=== PATIENT | female | born 1980 | race Hispanic/Latino ===

== ENCOUNTER 2021-11-28 15:59 | Inpatient (IN) | payer BC, OTHER ==
[~2021-11-28] VITALS: Ht 157.5 cm; Wt 81.6 kg
[~2021-11-28 15:59] MED LIST: DEXAMETHASONE SOD PHOS INJ 4 MG/ML SDV ONE; GLYCOPYRROLATE INJ 0.2 MG/ML VIAL ONE; KETOROLAC TROMETHAMINE 30 MG/ML VIAL ONE; NEOSTIGMINE 1 MG/ML 10ML VIAL ONE; ONDANSETRON HCL INJ 2MG/ML 2ML 2 MG/ML VIAL ONE; POVIDONE IODINE 0.05% 0.05 % ML PO ONE; PROPOFOL IV EMULSION 10 MG/ML 20 ML VIAL ONE
[2021-11-28] MEDS ORDERED: ONDANSETRON HCL INJ 2MG/ML 2ML 2 MG/ML VIAL IV STA (16:06)
[2021-11-28] MEDS ORDERED: ACETAMINOPHEN 1000 MG/100 ML IV STA (16:06)
[2021-11-28] MEDS ORDERED: CEFTRIAXONE 1 GM VIAL IM ONE (16:15)
[2021-11-28 16:21] LABS: BASOPHILS % 0.2 % (0.0-1.0); EOSINOPHILS % 0.4 % (0.0-6.0); HEMOGLOBIN 12.4 g/dL (12.0-16.0); LYMPHOCYTES # (AUTO) 0.5 (1.0-3.2); MEAN CORPUSCULAR HEMOGLOBIN 28.3 pg (28-32); MEAN CORPUSCULAR HGB CONC 31.8 g/dL (31-35); MONOCYTES # (AUTO) 0.2 (0.2-0.8); MONOCYTES % 4.3 % (4.4-11.3); NEUTROPHILS # (AUTO) 4.5 (2.1-6.9); NEUTROPHILS % 84.5 % (38.7-80.0); PLATELET COUNT 314 x10e3/uL (140-360); RED BLOOD COUNT 4.38 x10e6/uL (3.6-5.1); RED CELL DISTRIBUTION WIDTH 12.1 % (11.7-14.4)
[2021-11-28] MEDS ORDERED: SODIUM CHLORIDE 0.9% 1000ML 2,000 ML ONE (16:22)
[2021-11-28] MEDS ORDERED: SODIUM CHLORIDE 0.9% 1000ML 1,000 ML IV ONE ×2 (16:30)
[2021-11-28] MEDS ORDERED: CEFTRIAXONE 1 GM in SODIUM CHLORIDE 0.9% 50ML 50 ML IV ONE (16:30)
[2021-11-28 16:33] LABS: CLARITY,URINE HAZY (CLEAR); COLOR,URINE YELLOW (YELLOW); KETONES,URINE 1+ (NEGATIVE); LEUKOCYTE ESTERASE ,URINE NEGATIVE (NEGATIVE); NITRITE,URINE NEGATIVE (NEGATIVE); PROTEIN,URINE DIPSTICK >=300 (NEGATIVE); URINE UROBILINOGEN 4 mg/dL (0.2 - 1)
[2021-11-28 16:36] LABS: RBC,URINE 21-50 /HPF (0-5)
[2021-11-28 16:37] LABS: BACTERIA,URINE MODERATE /HPF; EPITHELIAL CELLS,URINE FEW /LPF
[2021-11-28 16:39] LABS: ALBUMIN 3.2 g/dL (3.5-5.0); ALBUMIN/GLOBULIN RATIO 0.6 (0.8-2.0); ANION GAP 16.9 mmol/L (8-16); CALCIUM 9.2 mg/dL (8.4-10.2); CREATININE, SERUM 0.73 mg/dL (0.57-1.11); POTASSIUM 3.9 mmol/L (3.5-5.1)
[2021-11-28 16:43] LABS: LIPASE 25 U/L (8-78)
[2021-11-28 16:46] LABS: CREATINE KINASE MB 0.2 ng/mL (0-5.0)
[2021-11-28] MEDS ORDERED: FENTANYL CITRATE/PF 100MCG/2 ML INJ IV ONE (17:30)
[2021-11-28] MEDS ORDERED: LACTATED RINGER'S 1,000 ML INJ ONE (17:45)
[2021-11-28] MEDS ORDERED: Vancomycin IV 1 GM in SODIUM CHLORIDE 0.9% 250ML 250 ML IV ONE (18:00)
[2021-11-28] MEDS: PIPERACILLIN/TAZOBACTAM 4.5 GM in SODIUM CHLORIDE 0.9% 100 ML IV ONE ×2 (18:02→18:12)
[2021-11-28] MEDS: SODIUM CHLORIDE 0.9% 1000ML 1,000 ML IV SCH (18:13)
[2021-11-28] MEDS ORDERED: PIPERACILLIN/TAZO 4.5 GM 100 ML IV ONE (18:16)
[2021-11-28] MEDS ORDERED: SODIUM CHLORIDE 0.9% 1000ML 1,000 ML ONE (18:19)
[2021-11-28] MEDS ORDERED: SODIUM CHLORIDE 0.9% 50ML 50 ML ONE (18:24)
[2021-11-28] MEDS ORDERED: IOPAMIDOL 370 MG/ML 200 ML INFUS..BTL INJ ONE (18:25)
[2021-11-28] MEDS ORDERED: PIPERACILLIN/TAZO 4.5 GM 100 ML IV SCH (18:45)
[2021-11-28] MEDS: Morphine 4mg Syringe 4 MG/ML INJ IV PRN (18:52)
[2021-11-28] MEDS ORDERED: BUPIVACAINE 0.25% 30ML SDV ONE (20:29)
[2021-11-28] MEDS ORDERED: FENTANYL CITRATE/PF 100MCG/2 ML INJ ONE (20:35)
[2021-11-28] MEDS ORDERED: MIDAZOLAM HCL 2 MG/2 ML VIAL ONE (20:36)
[2021-11-29] VITALS (8 sets, daily range): BP systolic 90–113; BP diastolic 53–69
[2021-11-29] MEDS: SODIUM CHLORIDE 0.9% 1000ML 1,000 ML IV SCH ×3 (02:03→14:40)
[2021-11-29 05:19] LABS: BASOPHILS # (AUTO) 0.1 (0.0-0.1); BASOPHILS % 0.8 % (0.0-1.0); HEMATOCRIT 33.1 % (34.2-44.1); HEMOGLOBIN 10.7 g/dL (12.0-16.0); LYMPHOCYTES # (AUTO) 0.6 (1.0-3.2); LYMPHOCYTES % 5.1 % (18.0-39.1); MEAN CORPUSCULAR HEMOGLOBIN 28.2 pg (28-32); MEAN CORPUSCULAR HGB CONC 32.3 g/dL (31-35); MEAN CORPUSCULAR VOLUME 87.1 fL (81-99); MONOCYTES # (AUTO) 0.5 (0.2-0.8); MONOCYTES % 4.1 % (4.4-11.3); NEUTROPHILS # (AUTO) 10.9 (2.1-6.9); NEUTROPHILS % 89.7 % (38.7-80.0); PLATELET COUNT 288 x10e3/uL (140-360); RED CELL DISTRIBUTION WIDTH 12.3 % (11.7-14.4)
[2021-11-29] MEDS: Morphine 4mg Syringe 4 MG/ML INJ IV PRN ×2 (05:20→20:15)
[2021-11-29 05:58] LABS: ANION GAP 13.1 mmol/L (8-16); CALCIUM 7.9 mg/dL (8.4-10.2); CREATININE, SERUM 0.57 mg/dL (0.57-1.11); POTASSIUM 4.1 mmol/L (3.5-5.1)
[2021-11-29] MEDS ORDERED: PIPERACILLIN/TAZO 4.5 GM 100 ML IV SCH (06:00)
[2021-11-29] MEDS ORDERED: PIPERACILLIN/TAZOBACTAM 4.5 GM in SODIUM CHLORIDE 0.9% 100 ML IV SCH (06:00)
[2021-11-29 08:16] LABS: BAND NEUTROPHILS % (MANUAL) 15 %; LYMPHOCYTES % (MANUAL) 6 % (19-48); MONOCYTES % (MANUAL) 3 % (3.4-9.0); NEUTROPHILS % (MANUAL) 76 % (40-74); PLATELET ESTIMATE ADEQUATE; PLATELET MORPHOLOGY COMMENT NORMAL; RBC MORPHOLOGY COMMENT NORMAL
[2021-11-29] MEDS: ONDANSETRON HCL INJ 2MG/ML 2ML 2 MG/ML VIAL IV PRN (08:37)
[2021-11-29] MEDS: PIPERACILLIN/TAZO 4.5 GM 100 ML IV SCH ×2 (14:39→22:05)
[2021-11-30] VITALS (8 sets, daily range): BP systolic 88–116; BP diastolic 56–77
[2021-11-30] MEDS: SODIUM CHLORIDE 0.9% 1000ML 1,000 ML IV SCH ×3 (04:30→19:58)
[2021-11-30] MEDS: Morphine 4mg Syringe 4 MG/ML INJ IV PRN ×3 (04:41→19:58)
[2021-11-30 05:03] LABS: BASOPHILS % 0.1 % (0.0-1.0); EOSINOPHILS # (AUTO) 0.1 (0.0-0.4); EOSINOPHILS % 0.4 % (0.0-6.0); HEMATOCRIT 28.8 % (34.2-44.1); HEMOGLOBIN 8.9 g/dL (12.0-16.0); LYMPHOCYTES # (AUTO) 1.6 (1.0-3.2); LYMPHOCYTES % 11.5 % (18.0-39.1); MEAN CORPUSCULAR HEMOGLOBIN 28.4 pg (28-32); MEAN CORPUSCULAR HGB CONC 30.9 g/dL (31-35); MONOCYTES # (AUTO) 0.6 (0.2-0.8); MONOCYTES % 4.7 % (4.4-11.3); NEUTROPHILS # (AUTO) 11.3 (2.1-6.9); NEUTROPHILS % 82.9 % (38.7-80.0); PLATELET COUNT 314 x10e3/uL (140-360); RED BLOOD COUNT 3.13 x10e6/uL (3.6-5.1); RED CELL DISTRIBUTION WIDTH 12.7 % (11.7-14.4)
[2021-11-30 05:33] LABS: ANION GAP 11.7 mmol/L (8-16); CALCIUM 7.9 mg/dL (8.4-10.2); CREATININE, SERUM 0.56 mg/dL (0.57-1.11); POTASSIUM 3.7 mmol/L (3.5-5.1)
[2021-11-30] MEDS: PIPERACILLIN/TAZO 4.5 GM 100 ML IV SCH ×3 (05:45→22:04)
[2021-11-30] MEDS: KETOROLAC TROMETHAMINE 30 MG/ML VIAL IV PRN ×2 (09:55→15:30)
[2021-12-01] VITALS (8 sets, daily range): BP systolic 101–119; BP diastolic 61–72
[2021-12-01] MEDS: KETOROLAC TROMETHAMINE 30 MG/ML VIAL IV PRN (00:14)
[2021-12-01] MEDS: PIPERACILLIN/TAZO 4.5 GM 100 ML IV SCH ×3 (05:21→21:30)
[2021-12-01 05:59] LABS: BASOPHILS % 0.2 % (0.0-1.0); EOSINOPHILS # (AUTO) 0.2 (0.0-0.4); EOSINOPHILS % 1.8 % (0.0-6.0); HEMATOCRIT 27.2 % (34.2-44.1); HEMOGLOBIN 8.5 g/dL (12.0-16.0); LYMPHOCYTES # (AUTO) 1.7 (1.0-3.2); LYMPHOCYTES % 13.2 % (18.0-39.1); MEAN CORPUSCULAR HGB CONC 31.3 g/dL (31-35); MEAN CORPUSCULAR VOLUME 89.5 fL (81-99); MONOCYTES # (AUTO) 0.9 (0.2-0.8); MONOCYTES % 7.4 % (4.4-11.3); NEUTROPHILS # (AUTO) 9.6 (2.1-6.9); NEUTROPHILS % 76.7 % (38.7-80.0); PLATELET COUNT 331 x10e3/uL (140-360); RED BLOOD COUNT 3.04 x10e6/uL (3.6-5.1); RED CELL DISTRIBUTION WIDTH 12.9 % (11.7-14.4)
[2021-12-01 06:29] LABS: ANION GAP 11.4 mmol/L (8-16); CALCIUM 7.6 mg/dL (8.4-10.2); CREATININE, SERUM 0.56 mg/dL (0.57-1.11); POTASSIUM 3.4 mmol/L (3.5-5.1)
[2021-12-01] MEDS: Morphine 4mg Syringe 4 MG/ML INJ IV PRN ×3 (06:57→15:30)
[2021-12-01] MEDS: SODIUM CHLORIDE 0.9% 1000ML 1,000 ML IV SCH (12:38)
[2021-12-01] MEDS ORDERED: POTASSIUM CHLORIDE 10MEQ EA PO ONE (16:30)
[2021-12-01] MEDS: ACETAMINOPHEN/CODEINE 300MG - 30MG TAB PO PRN (19:49)
[2021-12-02] VITALS (10 sets, daily range): BP systolic 107–122; BP diastolic 59–74
[2021-12-02 05:08] LABS: BASOPHILS % 0.2 % (0.0-1.0); EOSINOPHILS # (AUTO) 0.2 (0.0-0.4); EOSINOPHILS % 2.4 % (0.0-6.0); HEMATOCRIT 28.6 % (34.2-44.1); LYMPHOCYTES # (AUTO) 1.6 (1.0-3.2); LYMPHOCYTES % 15.6 % (18.0-39.1); MEAN CORPUSCULAR HEMOGLOBIN 27.8 pg (28-32); MEAN CORPUSCULAR HGB CONC 31.5 g/dL (31-35); MEAN CORPUSCULAR VOLUME 88.3 fL (81-99); MONOCYTES % 10.3 % (4.4-11.3); NEUTROPHILS # (AUTO) 6.9 (2.1-6.9); NEUTROPHILS % 69.4 % (38.7-80.0); PLATELET COUNT 353 x10e3/uL (140-360); RED BLOOD COUNT 3.24 x10e6/uL (3.6-5.1); RED CELL DISTRIBUTION WIDTH 12.8 % (11.7-14.4)
[2021-12-02] MEDS: ACETAMINOPHEN/CODEINE 300MG - 30MG TAB PO PRN ×2 (05:47→17:20)
[2021-12-02] MEDS: PIPERACILLIN/TAZO 4.5 GM 100 ML IV SCH ×3 (05:47→22:15)
[2021-12-02 06:14] LABS: MAGNESIUM 1.8 MG/DL (1.3-2.1); PHOSPHORUS 2.9 MG/DL (2.3-4.7)
[2021-12-02 07:57] LABS: ANION GAP 17.5 mmol/L (8-16); CALCIUM 8.2 mg/dL (8.4-10.2); CREATININE, SERUM 0.54 mg/dL (0.57-1.11); POTASSIUM 3.5 mmol/L (3.5-5.1)
[2021-12-02] MEDS: ONDANSETRON HCL INJ 2MG/ML 2ML 2 MG/ML VIAL IV PRN (13:05)
[2021-12-02] MEDS: Morphine 4mg Syringe 4 MG/ML INJ IV PRN (13:05)
[2021-12-02] MEDS: KETOROLAC TROMETHAMINE 30 MG/ML VIAL IV PRN ×2 (14:36→22:15)
[2021-12-02] MEDS ORDERED: SODIUM CHLORIDE 0.9% 250ML 250 ML ONE (22:21)
[2021-12-03] VITALS (11 sets, daily range): BP systolic 110–133; BP diastolic 61–76
[2021-12-03] MEDS: PIPERACILLIN/TAZO 4.5 GM 100 ML IV SCH ×3 (05:21→21:38)
[2021-12-03] MEDS: ACETAMINOPHEN/CODEINE 300MG - 30MG TAB PO PRN ×3 (05:34→16:00)
[2021-12-03] MEDS ORDERED: ONDANSETRON HCL 4 MG ORAL DISINTEGRATING TAB PO PRN (10:30)
[2021-12-03] MEDS: IRON SUCROSE 100 MG in SODIUM CHLORIDE 0.9% 100 ML 100 ML IV SCH (10:45)
[2021-12-03] MEDS: LORATADINE 10 MG TAB PO SCH (10:45)
[2021-12-03] MEDS: ACETAMINOPHEN 325 MG TAB PO SCH ×2 (10:53→11:29)
[2021-12-03] MEDS: ENOXAPARIN SOD INJ 40 MG/0.4 ML SYR SC SCH (15:59)
[2021-12-03] MEDS: Morphine 4mg Syringe 4 MG/ML INJ IV PRN (18:50)
[2021-12-04] VITALS (11 sets, daily range): BP systolic 109–135; BP diastolic 50–85
[2021-12-04] MEDS: Morphine 4mg Syringe 4 MG/ML INJ IV PRN ×2 (03:07→09:24)
[2021-12-04] MEDS: PIPERACILLIN/TAZO 4.5 GM 100 ML IV SCH ×3 (06:11→22:23)
[2021-12-04 06:49] LABS: BASOPHILS % 0.2 % (0.0-1.0); EOSINOPHILS # (AUTO) 0.2 (0.0-0.4); EOSINOPHILS % 2.5 % (0.0-6.0); HEMATOCRIT 26.5 % (34.2-44.1); HEMOGLOBIN 8.4 g/dL (12.0-16.0); LYMPHOCYTES # (AUTO) 1.7 (1.0-3.2); LYMPHOCYTES % 17.3 % (18.0-39.1); MEAN CORPUSCULAR HEMOGLOBIN 28.2 pg (28-32); MEAN CORPUSCULAR HGB CONC 31.7 g/dL (31-35); MEAN CORPUSCULAR VOLUME 88.9 fL (81-99); MONOCYTES % 10.1 % (4.4-11.3); NEUTROPHILS # (AUTO) 6.2 (2.1-6.9); NEUTROPHILS % 65.3 % (38.7-80.0); PLATELET COUNT 409 x10e3/uL (140-360); RED BLOOD COUNT 2.98 x10e6/uL (3.6-5.1); RED CELL DISTRIBUTION WIDTH 12.7 % (11.7-14.4)
[2021-12-04 07:21] LABS: ANION GAP 12.4 mmol/L (8-16); CALCIUM 8.2 mg/dL (8.4-10.2); CREATININE, SERUM 0.55 mg/dL (0.57-1.11); POTASSIUM 3.4 mmol/L (3.5-5.1)
[2021-12-04] MEDS ORDERED: POTASSIUM CHLORIDE 10MEQ EA PO NR ×2 (09:15→17:00)
[2021-12-04] MEDS: LORATADINE 10 MG TAB PO SCH (09:21)
[2021-12-04] MEDS: ACETAMINOPHEN 325 MG TAB PO SCH (09:21)
[2021-12-04] MEDS: IRON SUCROSE 100 MG in SODIUM CHLORIDE 0.9% 100 ML 100 ML IV SCH (10:10)
[2021-12-04] MEDS: ENOXAPARIN SOD INJ 40 MG/0.4 ML SYR SC SCH (17:08)
[2021-12-04] MEDS: KETOROLAC TROMETHAMINE 30 MG/ML VIAL IV PRN (18:29)
[2021-12-05] VITALS (8 sets, daily range): BP systolic 112–128; BP diastolic 74–84
[2021-12-05] MEDS: KETOROLAC TROMETHAMINE 30 MG/ML VIAL IV PRN ×2 (00:57→09:46)
[2021-12-05 05:27] LABS: BASOPHILS % 0.5 % (0.0-1.0); EOSINOPHILS # (AUTO) 0.3 (0.0-0.4); EOSINOPHILS % 3.9 % (0.0-6.0); HEMATOCRIT 28.3 % (34.2-44.1); HEMOGLOBIN 8.6 g/dL (12.0-16.0); LYMPHOCYTES # (AUTO) 1.9 (1.0-3.2); MEAN CORPUSCULAR HEMOGLOBIN 27.3 pg (28-32); MEAN CORPUSCULAR HGB CONC 30.4 g/dL (31-35); MEAN CORPUSCULAR VOLUME 89.8 fL (81-99); MONOCYTES # (AUTO) 0.7 (0.2-0.8); MONOCYTES % 8.3 % (4.4-11.3); NEUTROPHILS # (AUTO) 4.6 (2.1-6.9); PLATELET COUNT 425 x10e3/uL (140-360); RED BLOOD COUNT 3.15 x10e6/uL (3.6-5.1); RED CELL DISTRIBUTION WIDTH 12.8 % (11.7-14.4)
[2021-12-05] MEDS: PIPERACILLIN/TAZO 4.5 GM 100 ML IV SCH (06:10)
[2021-12-05] MEDS: IRON SUCROSE 100 MG in SODIUM CHLORIDE 0.9% 100 ML 100 ML IV SCH ×2 (08:43→09:44)
[2021-12-05] MEDS: ACETAMINOPHEN 325 MG TAB PO SCH (08:43)
[2021-12-05] MEDS: LORATADINE 10 MG TAB PO SCH (08:43)
[2021-12-05] MEDS ORDERED: BISACODYL 10 MG SUPP PR ONE (08:45)
[2021-12-05] MEDS ORDERED: POTASSIUM CHLORIDE 10MEQ EA PO ONE (08:45)
[2021-12-05] MEDS ORDERED: BISACODYL 10 MG SUPP PR PRN (08:45)
[2021-12-05] MEDS ORDERED: MAGNESIUM OXIDE 400 MG TAB PO SCH (09:00)
[2021-12-05] MEDS ORDERED: SENNA-S TABLET PO SCH (09:00)
[2021-12-06] MEDS ORDERED: PANTOPRAZOLE SOD 40 MG TABEC PO SCH (07:30)
== END 2021-12-05 12:38 | disposition home or self-care (01) | DRG 853 ==
LOC: ER 16:41 → ERHOLD 18:01 → IMCU 19:45 → MED/SURG 12-02 21:50
PROVIDERS: ADMIT Internal Medicine; ATTEND Internal Medicine
PROC: 3E03329 Introduction of Other Anti-infective into Peripheral Vein, Percutaneous Approach (ICD-10-PCS; 2021-11-28)
PROC: 0DTJ0ZZ Resection of Appendix, Open Approach (ICD-10-PCS; principal; 2021-11-28 20:30)
PROC: 0WJG4ZZ Inspection of Peritoneal Cavity, Percutaneous Endoscopic Approach (ICD-10-PCS; 2021-11-28 20:30)
DX: A41.9 Sepsis, unspecified organism (principal); K35.33 Acute appendicitis with perforation, localized peritonitis, and gangrene, with abscess; D62 Acute posthemorrhagic anemia; K76.0 Fatty (change of) liver, not elsewhere classified; R65.20 Severe sepsis without septic shock; D64.9 Anemia, unspecified; N83.201 Unspecified ovarian cyst, right side; Z53.31 Laparoscopic surgical procedure converted to open procedure; Z97.5 Presence of (intrauterine) contraceptive device; K66.0 Peritoneal adhesions (postprocedural) (postinfection); Z20.822 Contact with and (suspected) exposure to COVID-19
CPT/HCPCS: 36415; 71045; 74018; 74177; 80048; 80053; 81001; 82550; 82553; 83605; 83690; 83735; 84100; 84484; 84702; 85025; 87040; 87086; 88304; 93005; 94799; 96361; 99284; J1100; J1650; J1756; J1885; J2250; J2270; J2405; J2543; J2710; J3010; J3370; J7030; J7050; J7121; Q9967; U0002